=== PATIENT | female | born 2000 | race Caucasian/White ===

== ENCOUNTER 2021-12-31 17:43 | Emergency (ER) | payer OTHER ==
[~2021-12-31] VITALS: Ht 154.9 cm; Wt 63.6 kg
[2021-12-31] MEDS ORDERED: DiphenhydrAMINE HCL 25 MG CAPSULE PO ONE (19:30)
[2021-12-31] MEDS ORDERED: FAMOTIDINE 20 MG TABLET PO ONE (19:30)
[2021-12-31 20:08] VITALS: BP 129/68
== END 2021-12-31 20:13 | disposition home or self-care (01) ==
LOC: EMS 17:46
DX: R10.13 Epigastric pain (principal); T78.40XA Allergy, unspecified, initial encounter; X58.XXXA Exposure to other specified factors, initial encounter; F12.90 Cannabis use, unspecified, uncomplicated
CPT/HCPCS: 99283